=== PATIENT | female | born 1940 | race Caucasian/White ===

== ENCOUNTER 2019-04-16 08:55 | Inpatient (IN) | payer MEDICARE, BC ==
[~2019-04-16] VITALS: Ht 165.1 cm; Wt 76.0 kg
[2019-04-16 11:04] VITALS: BP 136/69
[2019-04-16] MEDS ORDERED: SLOW RELEASE I160 MG PO (13:10)
[2019-04-16] MEDS ORDERED: ECOTRIN325 MG PO (13:11)
[2019-04-16] MEDS ORDERED: OXYCONTIN10 MG (13:13)
[2019-04-16] MEDS ORDERED: VITAMIN D31000 UNIT PO (13:14)
[2019-04-16] MEDS ORDERED: PRINIVIL10 MG PO (13:15)
[2019-04-16] MEDS ORDERED: DONEPEZIL HCL10 MG PO (13:15)
[2019-04-16] MEDS ORDERED: PROTONIX40 MG PO (13:16)
[2019-04-16 13:57] LABS: BASOPHILS 0.4 % (0-2); EOSINOPHILS 0.4 % (0-7); HEMATOCRIT 41.3 % (36.0-48.0); IMMATURE GRANULOCYTES 0.3 % (0-5); MCH 33.5 pg (26.0-34.0); MCHC 33.9 g/dL (31.0-37.0); MCV 98.8 fL (80.0-100.0); MEAN PLATELET VOLUME 9.9 fL (7.4-10.4); MONOCYTES 6.6 % (2-11); NEUTROPHILS 70.3 % (40-80); PLATELET COUNT 215 10x3/uL (130-400); RBC 4.18 10x6/uL (4.00-5.40); RDW 12.7 % (11.5-14.5)
[2019-04-16 14:37] LABS: ALBUMIN 4.3 g/dL (3.4-5.0); ANION GAP 11.2 mmol/L (8-16); BILIRUBIN - TOTAL 1.07 mg/dL (0.2-1.3); CALCIUM 9.1 mg/dL (8.5-10.1); CARBON DIOXIDE 28.4 mmol/L (21.0-32.0); CHOL - HDL RATIO 2.5 ratio (2.3-4.1); CREATININE - SERUM 1.2 mg/dL (0.6-1.3); LDL-HDL RATIO 1.3 ratio (1.5-3.5); POTASSIUM - SERUM 3.6 mmol/L (3.5-5.1); PROTEIN - SERUM 7.9 g/dL (6.4-8.2); THYROID STIMULATING HORMONE 1.6 uIU/mL (0.36-3.74)
[2019-04-16 14:59] LABS: APPEARANCE HAZY (CLEAR); BACTERIA MODERATE /hpf (NEGATIVE); BILIRUBIN NEGATIVE (NEGATIVE); COLOR YELLOW (YELLOW); EPITHELIAL CELLS OCC /hpf (0-5); GLUCOSE NEGATIVE (NEGATIVE); KETONE NEGATIVE (NEGATIVE); NITRITE NEGATIVE (NEGATIVE); PROTEIN NEGATIVE (NEGATIVE); SPECIFIC GRAVITY 1.025 (1.005-1.020); UROBILINOGEN NORMAL (NORMAL); WHITE CELLS - URINE 0-5 /hpf (NEGATIVE)
[2019-04-16 20:00] VITALS: BP 139/77
[2019-04-16 23:04] VITALS: BP 130/77; BMI 27.9
[2019-04-17 07:14] LABS: RAPID PLASMA REAGIN Non Reactive (Non Reactive)
[2019-04-17 08:36] VITALS: BP 139/75
[2019-04-17 09:38] VITALS: BP 139/75
[2019-04-17 10:23] VITALS: Ht 165.1 cm; Wt 76.0 kg
--- NOTE | 2019-04-17 11:08 | NUR ---
PT IS WANDERING AROUND DAY AREA SPEAKING WITH EVERYONE. PT IS VERY FRIENDLY WITH STAFF AND PEERS. PT IS HELPFUL WITH PEERS. PT IS ALERT AND ORIENTED TO SELF ONLY. PT HAS LIMITED INSIGHT TO SITUTION. COMPLIANT WITH MEDS, VITALS AND ASSESSMENT. PT DENIES ANY SI. PT STATED "NO, IM SMARTER THAN THAT." WILL CONT PLAN OF CARE.
--- NOTE | 2019-04-17 15:25 | PSY ---
PATIENT NAME:JONNY PRESTON MEDICAL RECORD: [id number] : 42 LOCATION:[facility] ADMISSION DATE: 04/16/19 ACCOUNT: [id number] PSYCHIATRIC EVALUATION DATE OF EVALUATION: 04/16/19 IDENTIFYING DATA: The patient is 78 years old and she is admitted to the hospital on a voluntary basis. CHIEF COMPLAINT: Suicidal statements. HISTORY OF PRESENT ILLNESS: The patient lives in a shelter in [place]. She has only been there a few weeks. Her lives in an independent section of the same facility as I understand it. The patient has been very upset about not being with her all the time and she has been telling the staff at the shelter that she wants someone to kill her. Apparently, she has made these statements a number of times. We were subsequently contacted and agreed to accept her for evaluation and treatment. Unfortunately, the patient at this time is not willing to give me any information. She is clearly very impaired. She does answer a few questions that her basic to orientation, but she answers them wrong. She thinks she is in [place], [place] and that her children are waiting for her at school. 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 She does not know the year. She is extremely agitated and is probably going to require something to calm her. She denies that she ever made any suicidal statements and denies that she currently wants to hurt herself. She wants to go to [place], [place] and be with her and her students. PAST MEDICAL HISTORY: Significant for arthritis and hypertension. PAST SURGICAL HISTORY: She has also had a history of an appendectomy, a hemorrhoidectomy, a right shoulder replacement, a total knee arthroplasty, and a tonsillectomy. PAST PSYCHIATRIC HISTORY: Significant for an established diagnosis of dementia, although it is unclear who made this diagnosis or when it was made. FAMILY HISTORY: Unknown. ALLERGIES: No known drug allergies. CURRENT MEDICATIONS: Include vitamin D, vitamin E, Zestril, Protonix, and Aricept. SOCIAL HISTORY: The patient tells me she is and has 1 adult child, a son, I believe, but I cannot remember. She says she does not drink to excess and never has. She has no history of drug use, she says. 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 MENTAL STATUS EXAMINATION: The patient is awake, alert, and oriented to person only. Her mood is anxious and her affect is constricted. Thought processes are very disorganized with a severe impairment of her memory, concentration, and abstraction abilities. She denies that she would seek to harm herself. She denies that she would seek to harm others and she denies psychotic symptoms, although I do think she understood the question. ASSETS: Supportive family members. LIABILITIES: Limited insight. DIAGNOSTIC IMPRESSION: AXIS I: 1. Major neurocognitive disorder of the Alzheimer's type. 2. Rule out major depression. AXIS II: Deferred. AXIS III: Hypertension, osteoarthritis. AXIS IV: Moderate. AXIS V: Global assessment of functioning is 30. PLAN: At this time, the patient is admitted to the hospital secondary to agitation and suicidal statements at the shelter. It is my impression that this is not likely related to a true underlying major depressive illness, although there may be 1 president and it says probably [id number] at worst. I think that she is advanced in her dementia, unable to process information and understand what is going on around her and that she becomes upset and make some hyperbolic statements about wanting to . I do think she is appropriate to be confined to this setting for further evaluation and treatment, but at this point, I do not view her as an active suicidal risk for the circumstantial reasons described above as well as for the fact that she is so impaired cognitively. She would likely have difficulty planning and executing a suicide. TRANSINT:[id number] Voice Confirmation ID: [id number] DOCUMENT ID: [id number] ZURDO GALAVIZ MD at 1525 CC: [id number] DICTATION DATE: 04/16/19 1543 FIELD SERVICES ANALYST: 04/16/19 1713 [facility] IN [place] [address] [place] [address]
[2019-04-17 20:00] VITALS: BP 110/53
--- NOTE | 2019-04-17 22:47 | NUR ---
REC'D SITTING IN THE DAYROOM. CONFUSED AND DISORIENTED. WHEN ASKED IF SHE KNEW THE REASON SHE IS HERE PT RELATES SHE LAUGHS "BECAUSE SO MANY STUPID THINGS." LAUGHS FREQUENTLY WHEN TALKING TO STAFF. RELATED TO NURSE "I'M SMART, I REALLY AM. 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 I KNOW I DON'T APPEAR SMART BUT I REALLY AM." OBSERVED PATIENT TALKING TO A PEER AND SHE RELATED TO THE PEER THAT SHE IS REALLY SMART. DID NOT ACKNOWLEDGE SHE IS HERE FOR SI. ADMINISTER MEDS AND MONITOR COMPLIANCE. OBTAIN VERBAL NO HARM CONTRACT. MED COMPLIANT. CONTRACTS VERBALLY FOR NO SELF HARM. CONTINUE POC AND PROVIDE SAFE ENVIRONMENT.
[2019-04-18 08:05] VITALS: BP 134/70
--- NOTE | 2019-04-18 11:13 | NUR ---
PT WAS SPEAKING WITH DRY KILN BURNER AND BECAME UPSET STATING "YOU DONT GIVE A SHIT ABOUT WHATS GOING ON WITH ME." STAFF REDIRECTED PT. PT SAT IN A CHAIR AND STATED TO ANOTHER PT "I'M GOING TO JUST KILL MYSELF. I DONT KNOW WHAT TO DO" WHEN DIRECTLY ASKED BY STAFF PT DENIES SI. PT IS ALERT AND ORIENTED TO SELF ONLY. CONFUSED. PT THINKS STAFF IS MAD AT HER AND TALKING ABOUT HER. ATTEMPTED TO REDIRECT. PT STATED SHE WAS HUNGRY. JELLO GIVEN AND PT ATE 100%. COMPLIANT WITH MEDS, VITALS AND ASSESSMENTS. PT AMBULATES. ABLE TO MAKE NEEDS KNOWN. PT HAD A SHOWER THIS SHIFT WITH CHG. TOLERATED WELL. WILL CONT PLAN OF CARE.
--- NOTE | 2019-04-18 14:32 | PN ---
PATIENT:JONNY PRESTON MEDICAL RECORD: [id number] LOCATION:[facility] ADMISSION DATE: 04/16/19 PROGRESS NOTE DATE OF SERVICE: 04/17/2019 SUBJECTIVE: The patient's case was discussed with staff. She has no new complaint. OBJECTIVE: The patient is much calmer today. I believe that is related to the Klonopin. She is extremely anxious and severely demented. I do not think the suicidal statements are related to some underlying endogenous mood disorder, but rather it is simply associated with a woman who is advanced in her dementia, is unable to make sense of what is going on around her and is only comforted and calm when her is with her. I am going to speak with the treatment team about the possibilities of the two of them being together more. She is in a alf. He is in an assisted living and I don't know why they cannot spend more time together or if that is an issue for the . I will sort this out and see what can be done. TRANSINT:[id number] Voice Confirmation ID: [id number] DOCUMENT ID: [id number] ZURDO GALAVIZ MD at 1432 CC: [id number] DICTATION DATE: 04/17/19 1546 DEPLOYMENT ENGINEER: 04/17/19 2203 ADM IN [facility] [address] [id number]
[2019-04-18 21:35] VITALS: BP 162/83
--- NOTE | 2019-04-18 22:46 | NUR ---
REC'D WALKING IN HALLWAY. CONFUSED AND DISORIENTED. PREOCCUPIED WITH PROVING TO OTHERS THAT IS NOT GOING TO HURT HERSELF. FREQUENTLY ASK ABOUT HER . AT THE NURSES STATION FREQUENTLY ATTEMPTING TO EXPRESS HERSELF HOWEVER HAS DIFFICULTY PRESENTING THOUGHTS. WANTS TO TALK TO THE DOCTOR RELATING SHE HAS NOT HAD A DOCTOR SINCE SHE HAS BEEN HERE. ANXIOUS AND PACES. VERY FORGETFUL AND CAN NOT FIND HER ROOM. ADMINISTER MEDS AND MONITOR COMPLIANCE. OBTAIN VERBAL NO HARM CONTRACT. MED COMPLIANT. CONTRACTS VERBALLY FOR NO SELF HARM RELATING SHE HAS SAID THINGS BEFORE BUT DOES NOT MEAN THEM THAT SHE WOULD NOT HURT HERSELF AND ANYONE ELSE. RELATES WE JUST DON'T UNDERSTAND. CONTINUE POC AND PROVIDE SAFE ENVIRONMENT.
--- NOTE | 2019-04-19 07:28 | NUR ---
B) The patient is awake and alert. She is pleasant but she is confused, she has poor short term memory recall and she has no insight into her situation. She said "I sure would like to find my house." I) Provide prescribed meds. R) The patient is compliant with meds and she redirects easily. P) Continue POC.
[2019-04-19 10:02] VITALS: BP 134/77
--- NOTE | 2019-04-19 11:56 | NUR ---
According to the Suicide Assessment the patient rates low on the suicide assessment scale and will not require a 1:1 observation at this time.
--- NOTE | 2019-04-19 12:27 | PN ---
PATIENT:JONNY PRESTON MEDICAL RECORD: [id number] LOCATION:[facility] ADMISSION DATE: 04/16/19 PROGRESS NOTE DATE OF SERVICE: 04/18/2019 SUBJECTIVE: The patient's case was discussed with staff. She has no new complaint. OBJECTIVE: The patient is quite distressed. She is not understanding or able to process what is going on even though it has been explained to her, her reasons for being hospitalized and the evaluation that is taking place. Nevertheless, she is upset and unable to adequately process what I am saying to her. ASSESSMENT: Dementia. PLAN: The patient will be treated with Zoloft to assist with her depressive symptoms. She will be monitored for clinical changes associated with its use. Her long-term prognosis is guarded. TRANSINT:[id number] Voice Confirmation ID: [id number] DOCUMENT ID: [id number] ZURDO GALAVIZ MD at 1227 CC: [id number] DICTATION DATE: 04/18/19 1437 HL7 DEVELOPER: 04/18/19 1537 ADM IN [place] [id number] [place] [address]
[2019-04-19 20:04] VITALS: BP 124/68
--- NOTE | 2019-04-20 00:16 | NUR ---
REC'D PATIENT AMBULATORY ON UNIT. CONFUSED AND DISORIENTED. ORIENTED TO SELF ONLY. HAS DIFFICULTY EXPRESSING THOUGHTS. WILL TRY TO TELL STAFF SOMETHING BUT CAN'T STAY FOCUSED ON TOPIC. FOLLOWS VERBAL INSTRUCTION HOWEVER DOES NOT RETAIN INFORMATION AND STAFF USUALLY HAS TO HELP PATIENT WITH TASK FOR EXAMPLE FINDING HER ROOM. ADMINISTER MEDS AND MONITOR COMPLIANCE. OBTAIN VERBAL CONTRACT FOR NO SELF HARM. MED COMPLIANT. CONTRACTS VERBALLY FOR NO SELF HARM. CONTINUE POC AND PROVIDE SAFE ENVIRONMENT.
[2019-04-20 09:05] VITALS: BP 116/66
--- NOTE | 2019-04-20 11:31 | NUR ---
PT IS AWAKE AND ALERT TO PERSON ONLY. PT IS PLEASANT BUT CONFUSED. PT HAS POOR INSIGHT INTO HER SITUATION. REDIRECT AND REORIENT NEEDED. MED COMPLIANT. FALL PRECAUTIONS IN PLACE. NO BEHAVIORS NOTED. WILL CPOC.
--- NOTE | 2019-04-20 17:23 | NUR ---
PT HAD VISITORS THIS SHIFT. ASKED "NURSE WHERE WERE THE CLOTHES SHE CAME IN?" NURSE EXPLAINED SHE WOULD FIND OUT BECAUSE IT WAS NOT ON THE INVENTORY SHEET AND SHE WAS NOT PRESENT DURING ADMISSION. STATED WELL WHERE DID THEY GO? SHE DIDN'T COME HERE NAKED. NURSE EXPRESSED UNDERSTANDING AND TOLD HIM WE WOULD LOOK FOR CLOTHES. ALSO BROUGHT CLOTHES. CLOTHES INVENTORY ON SHEET AND NAME WROTE INTO CLOTHES. NINO SWEATPANTS FOUND. NAME PLACED INTO CLOTHES AND ADDED TO INVENTORY SHEET. ASKED TO SEE PT ROOM STATING SHE SAID SHE DIDNT HAVE A ROOM. NURSE SHOWED PT ROOM. HE LOOKED OVER IT STATED IT HAD A BATHROOM. NURSE EXPLAINED ALL ROOMS WERE SINGLE OCCUPANCY AND ITS OWN UNIT. THANKED NURSE AND WENT BACK TO VISITATION. HE ASKED ABOUT WHEN THE DOCTOR COMES IN. NURSE EXPLAINED HE ROUNDS DURING THE SHIFTS AND TO CALL THE UNIT TO SET UP A TIME TO SPEAK WITH COKE WHEELER. HE INQUIRED WHERE THE OFFICES WERE. NURSE EXPLAINED THEY WERE DOWN IN THE GENERAL DAY AREA. PT VOICED UNDERSTANDING.
--- NOTE | 2019-04-20 18:09 | NUR ---
PT DID NOT WANT TO EAT MUCH OF HER DINNER. ENCOURAGED WITH SUPPLEMENTS AND OTHER FOOD CHOICES. PT REFUSED OFFERS.
--- NOTE | 2019-04-20 21:31 | NUR ---
RECEIVED IN PATIENT ROOM. RESTING IN BED WITH EYES OPEN. CALM AND COOPERATIVE WITH CARE AND ASSESSMENT. DENIES THOUGHTS OF SELF HARM. REDIRECT AND REORIENT NEEDED. RESTING IN BED WITH EYES CLOSED AT THIS TIME. CONTINUE PLAN OF CARE.
[2019-04-21 10:44] VITALS: BP 127/70
--- NOTE | 2019-04-21 14:01 | PN ---
PATIENT:JONNY PRESTON MEDICAL RECORD: [id number] LOCATION:[facility] ADMISSION DATE: 04/16/19 PROGRESS NOTE DATE OF SERVICE: 04/19/2019 SUBJECTIVE: The patient's case was discussed with staff. She has no new complaint. OBJECTIVE: The patient has been quite anxious. She is having difficulty focusing her attention. She is constantly looking for her who I suspect will be here this afternoon. She has not been aggressive or threatening and as I have mentioned in yesterday's note, I do not think she is acutely suicidal or dangerous and that her suicidal statements at the intermediate were related to confusion and frustration. ASSESSMENT: Dementia. PLAN: I have started the patient on a low dose of Zoloft and will likely increase that prior to discharge, but I anticipate she will not be hospitalized much longer. TRANSINT:[id number] Voice Confirmation ID: [id number] DOCUMENT ID: [id number] ZURDO GALAVIZ MD at 1401 CC: [id number] DICTATION DATE: 04/19/19 1232 IT QUALITY ANALYST: 04/19/19 1243 ADM IN [facility] [address] [place] [address]
[2019-04-21] MEDS ORDERED: Zoloft PO (15:39)
[2019-04-21] MEDS ORDERED: Megace ES [CHEMO] PO (15:39)
--- NOTE | 2019-04-21 16:20 | NUR ---
PT DISCHARGE WITH . PT IN STABLE CONDITION AT TIME OF DISCHARGE. NO S/SX OF DISTRESS NOTED. ALL PAPERWORK SENT WITH PT.
--- NOTE | 2019-04-22 12:52 | PN ---
PATIENT:JONNY PRESTON MEDICAL RECORD: [id number] LOCATION:[facility] ADMISSION DATE: 04/16/19 PROGRESS NOTE DATE OF SERVICE: 04/21/2019 SUBJECTIVE: The patient's case was discussed with staff. She has no new complaint. OBJECTIVE: The patient is in good behavioral control with limited insight about her condition. ASSESSMENT: Dementia. PLAN: The patient's wants her discharged today. He says that he wants her back at the longterm with him. She is impaired. He actually appears to be as well, but she is very impaired, and she says she wants to go with him. She has not had any behavior problems over the weekend, so I am going to go ahead and discharge her and I am not going to discharge her against medical advice. Followup will be with the primary care longterm physician. I would have preferred another day or two to do some more medication adjustments, but I do not feel strongly enough about it to discharge her against medical advice. She and her have been a long time and it is very difficult for them to be , so I will discharge her. She was admitted because she made suicidal statements at the longterm, but I do not think she is a direct suicide risk. I have explained that in previous notes. TRANSINT:[id number] Voice Confirmation ID: [id number] DOCUMENT ID: [id number] ZURDO GALAVIZ MD at 1252 CC: [id number] DICTATION DATE: 04/21/19 171 SENIOR CONSTRUCTION MANAGER: 04/22/19 0140 DIS IN 04/21/19 [facility] [address] [place] [address]
--- NOTE | 2019-04-24 13:51 | DS ---
PATIENT:JONNY PRESTON :42 MEDICAL RECORD: [id number] DISCHARGE SUMMARY ADMISSION DATE: 04/16/19 DISCHARGE DATE: 04/21/19 IDENTIFYING DATA: The patient is 78 years old and she was admitted to the hospital on a voluntary basis because of suicidal statements. The patient has dementia and she lives in a prison in [place]. She apparently has only been there a couple of weeks and prior to that, she was living with her . She is having a great deal of difficulty from him and processing information. She is making suicidal statements and said she wants to kill herself. She is extremely anxious and looking for her . HOSPITAL COURSE: The patient was admitted to the hospital and evaluated from both a medical, psychological, and social standpoint. It was my opinion that she was not primarily suffering from a major depressive episode, but rather she is suffering from an advanced dementia and becomes easily upset, agitated, and distressed when she cannot understand or process information in her environment. I think under those circumstances, she is prone to say things that are somewhat dramatic or hyperbolic. She most definitely does not have the cognitive abilities to device and execute a plan to harm herself. Nevertheless, when upset. She may well strike out at someone else or impulsively do something to herself, but I think that the chances of that are fairly low. The patient was being treated for the underlying agitation and distress and I thought was making reasonable progress. Unfortunately, her wanted her discharged immediately stating that he could more easily visit her. She was returned to the prison. She was not having any active suicidal thoughts and although it would have been preferable to make additional medication adjustments he did not want her to stay and she was going to follow his lead and requested discharge. She was subsequently discharged with followup to be scheduled by the prison physician. Perhaps some other followup might have been arranged, but given the circumstances, it could not. DISCHARGE DIAGNOSES: AXIS I: 1. Advanced major neurocognitive disorder of the Alzheimer's type. 2. Adjustment disorder with depressive features. AXIS II: Deferred. AXIS III: Hypertension, osteoarthritis. AXIS IV: Moderate. AXIS V: Global assessment of function is 35. PLAN: At the time of discharge, the patient was not suicidal. She was still having some anxiety and I suspect the circumstances that led to her admission here have probably not improved dramatically, but I do not think she is acutely dangerous. Followup will be with her primary care physician. TRANSINT:[id number] Voice Confirmation ID: [id number] DOCUMENT ID: [id number] DISCHARGE SUMMARY REPORT [id number] JONNY PRESTON PETER MD at 1351 CC: [id number] DICTATION DATE: 04/23/19 1216 AERIAL PHOTOGRAMMETRIST: 04/24/19 0202 DIS IN 04/21/19 [id number] [place] [address]
== END 2019-04-21 16:26 | disposition home or self-care (01) | DRG 57 ==
LOC: D.PSYCH 08:55
PROVIDERS: ADMIT Psychiatry & Neurology Psychiatry; ATTEND Psychiatry & Neurology Psychiatry
DX: G30.9 Alzheimer's disease, unspecified (principal); F02.81 Dementia in other diseases classified elsewhere, unspecified severity, with behavioral disturbance; I10 Essential (primary) hypertension; M19.91 Primary osteoarthritis, unspecified site; K21.9 Gastro-esophageal reflux disease without esophagitis; E55.9 Vitamin D deficiency, unspecified; R63.0 Anorexia; R26.89 Other abnormalities of gait and mobility